=== PATIENT | male | born 1965 | race Caucasian/White ===

== ENCOUNTER 2020-11-22 19:43 | Emergency (ER) | payer SELFPAY ==
[2020-11-22] MEDS: predniSONE 20 MG TABLET 60 MG PO (19:55)
[2020-11-22 19:57] VITALS: BP 144/74; PULSE 78; RESP 24; TEMP 36.6; O2SAT 97; BMI 20.5
[2020-11-22 20:37] LABS: COVID19 -Nasal RAPID Negative (Negative)
--- NOTE | 2020-11-22 20:37 | PC.NURSE ---
Pt feeling better after MDI.
[2020-11-22 20:51] VITALS: PULSE 74; RESP 18; O2SAT 97
[2020-11-22] MEDS: ALBUTEROL/IPRATROPIUM 3 ML AMPUL INH (20:51)
--- NOTE | 2020-11-22 21:11 | RT ---
Pt's pre peak flow was 427, peak flow post tx was 393. Pt didn't give best effort for post peak flow and he did not want to attempt again. No respiratory distress noted.
--- NOTE | 2020-11-23 02:57 | ED_ITS ---
HPI - URI/Sore Throat General Chief Complaint: Upper Respiratory Symptoms Stated Complaint: Asthma Attack Time Seen by Provider: 11/22/20 19:52 Source: patient Mode of arrival: Ambulatory Limitations: no limitations History of Present Illness HPI Narrative: 55-year-old male nonsmoker with history of asthma presents with a chief complaint of wheezing and shortness of breath over the past few days. He states he has been without his medications for the past few weeks. He denies any chest pain. He has had no fever or chills. He denies nausea, vomiting or diarrhea. He becomes more short of breath with exertion and improves with rest. He denies any weight gain or swelling of his lower extremities. He denies long distance travel or history of blood clot. MD Complaint: other Onset (ago): hour(s) Duration: constant Severity: moderate Exacerbating factors: exertion Able to tolerate fluids by mouth: Yes Associated symptoms: denies other symptoms Treatments prior to arrival: none Related Data Previous Rx's Medication Instructions Recorded albuterol sulfate 2 puff INHALATION Q4H PRN #1 each 11/22/20 prednisone 20 mg PO DAILY #5 tab 11/22/20 Allergies Allergy/AdvReac Type Severity Reaction Status Date / Time No Known Drug Allergies Allergy Verified 11/22/20 20:02 Review of Systems Constitutional Constitutional: Denies chills, Denies fatigue, Denies fever(s), Denies frequent falls, Denies lethargy and Denies weakness Eyes Eyes: Denies change in vision, Denies eye discharge, Denies irritation and Denies loss of vision ENT Ears, Nose, Mouth, and Throat: Denies change in voice, Denies dizziness, Denies neck pain, Denies sore throat and Denies throat swelling Cardiovascular Cardiovascular: Denies chest pain, Denies irregular heart rhythm, Denies lightheadedness, Denies palpitations, Reports dyspnea, Denies dyspnea on exertion and Denies orthopnea Respiratory Respiratory: Denies cough, Reports dyspnea, Denies dyspnea on exertion and Reports wheezing Gastrointestinal Gastrointestinal: Denies abdominal pain, Denies change in bowel habits, Denies diarrhea, Denies nausea and Denies vomiting Musculoskeletal Musculoskeletal: Denies neck pain and Denies numbness Integumentary/Breasts Skin/Breast: Denies pruritus, Denies erythema, Denies rash and Denies wounds Neurologic Neurologic: Denies behavioral changes, Denies confusion, Denies dizziness, Denies frequent falls, Denies loss of vision, Denies numbness and Denies weakness Psychiatric Psychiatric: Denies anxiety, Denies behavioral changes, Denies confusion, Denies depression, Denies homicidal ideation and Denies suicidal ideation Endocrine Endocrine: Denies fatigue, Denies flushing and Denies palpitations Hematologic/Lymphatic Hematologic/Lymphatic: Denies easy bruising Allergic/Immunologic Allergic/Immunologic: Denies urticaria, Denies throat swelling and Reports wheezing Patient History Smoking Status: Never smoker alcohol intake frequency: 0-2 drinks per day Substance Use Type: does not use Exam Narrative Exam Narrative: GENERAL: [age] year old patient appears stated age. Well-developed patient, in mild distress. increased work of breathing HEAD: Atraumatic. Normocephalic. EYES: Pupils equal round and reactive. Extraocular motions intact. No scleral icterus. No injection or drainage. ENT: Nose without bleeding, purulent drainage. Throat without erythema, tonsillar hypertrophy or exudate. Airway patent. NECK: Trachea midline. Non tender CARDIOVASCULAR: Regular rate and rhythm without murmurs, gallops, or rubs. RESPIRATORY: decreased breath sounds throughout with wheezing in the apices and prolonged expiratory phase GASTROINTESTINAL: Abdomen soft, non-tender, nondistended. EXTREMITIES: No edema or joint tenderness. BACK: Nontender without deformity or crepitance. No flank tenderness. NEURO: AOx3. SKIN: No rash or erythema of visible areas Initial Vital Signs Initial Vital Signs: Vital Signs Temperature 97.8 F 11/22/20 19:57 Pulse Rate 78 11/22/20 19:57 Respiratory Rate 24 11/22/20 19:57 Blood Pressure 144/74 H 11/22/20 19:57 Pulse Oximetry 97 11/22/20 19:57 Course Course Course Narrative: patient demonstrates tremendous improvement after the above- stated therapies and is requesting discharge Orders Ordered: ED Orders 11/22/20 19:50 COVID19 -Nasal swab/Pre-Proc Stat 11/22/20 19:52 Measure peak expiratory flow POST TREATMENT Measure peak expiratory flow PRE TREATMENT RT Consult Eval and Treat STAT Discontinued Medications Albuterol/Ipratropium (Albuterol/Ipratropium 3 Ml Ampul) 3 ml INH NOW ONE Stop: 11/22/20 19:53 Last Admin: 06/18/21 20:51 Dose: 3 ml Documented by: SAURAV Prednisone (Prednisone 20 Mg Tablet) 60 mg PO NOW ONE Stop: 11/22/20 19:53 Last Admin: 11/22/20 19:55 Dose: 60 mg Documented by: PEYMAN Vital Signs Vital signs: Vital Signs - 8 hr 11/22/20 19:57 11/22/20 20:51 Temperature 97.8 F Pulse Rate 78 74 Respiratory Rate 24 18 Blood Pressure 144/74 H Pulse Oximetry 97 97 MDM - URI/Sore Throat Lab Data Labs: Lab Results 11/22/20 Range/Units 19:50 SARS-CoV-2 (PCR) Negative (Negative) Discharge Plan Departure Patient Disposition: Home Clinical Impression: Asthma exacerbation Qualifiers: Asthma severity: moderate Asthma persistence: unspecified Qualified Code(s): J45.901 - Unspecified asthma with (acute) exacerbation Instructions: Asthma -- Adult Activity Restrictions/Additional Instructions: *You have been diagnosed with [asthma exacerbation and no access to medications] *What to do: *Please continue to take your regular medications as directed. [ ] New medication prescriptions sent to your pharmacy: [ ] [ x] New medication written as a paper prescription [ ] No new medications given *Please follow up with your primary care provider in 2-3 days, call for an appointment. Let them know you were seen in the Emergency Department and that we ask that you be seen in follow up. We will electronically transmit a record of today's note if your PCP is in our system *If you do not have a primary care provider please contact the [facility] Resource line at [phone]. They will ask some questions about your medical history and help get you set up with a doctor in the community. *Return to Emergency Department if you should have any new, worsening or concerning symptoms, such as [fever greater than 101 F, shaking chills, worsening pain, persistent vomiting or other bothersome symptoms] Prescriptions: New prednisone 20 mg tablet 20 mg PO DAILY Qty: 5 RF: 0 albuterol sulfate 90 mcg/actuation aerosol powdr breath activated 2 puff INHALATION Q4H PRN (Reason: shortness of breath or wheezing) Qty: 1 RF: 0
== END 2020-11-22 21:23 | disposition home or self-care (01) ==
PROVIDERS: Emergency Provider Emergency Medicine
DX: J45.901 Unspecified asthma with (acute) exacerbation (principal); Z20.822 Contact with and (suspected) exposure to COVID-19
CPT/HCPCS: 87635; 94150; 94640; 99283; C9803

== ENCOUNTER 2021-10-06 22:44 | Emergency (ER) | payer OTHER, MEDICAID, SELFPAY ==
[2021-10-06 22:47] VITALS: BP 169/94; PULSE 77; RESP 20; TEMP 37.1; O2SAT 97
--- NOTE | 2021-10-06 23:12 | ED.RECABL ---
HPI - Recheck/Abnormal Lab/Rx General Chief Complaint: Recheck/Abnormal Lab/Rx Stated Complaint: [facility] Time Seen by Provider: 10/06/21 23:00 Source: patient and police Mode of arrival: Ambulatory History of Present Illness HPI narrative: 56-year-old male smoker with history of alcohol abuse denies other chronic medical problems presents with [place] please for medical clearance for incarceration. The patient admits to have consuming a large amount of alcohol tonight but denies any substances or drugs. He denies any injury or trauma nor any pain. He has no trouble breathing, nausea, vomiting or diarrhea. They had initially attempted to take him directly to shelter but because he was walking with an unsteady gait they requested he be medically cleared 1st. About 1-2 hours has passed in the interim and PD states that he has already clearly much better but still request clearance. They state the patient was unable to perform a Breathalyzer initially and the chair request a blood alcohol below 0.29 Related Data Previous Rx's Medication Instructions Recorded albuterol sulfate 90 mcg/actuation 2 puff INHALATION Q4H PRN #1 each 11/22/20 breath activated powder inhaler prednisone 20 mg tablet 20 mg PO DAILY #5 tab 11/22/20 Allergies Allergy/AdvReac Type Severity Reaction Status Date / Time No Known Drug Allergies Allergy Verified 11/22/20 20:02 Review of Systems Review of Systems Narrative: GENERAL: Denies chills, fatigue, malaise, fever, sweats. HEENT: Denies sinus pain, ear pain, sore throat, difficulty swallowing, dizziness. RESPIRATORY: Denies dyspnea, cough, wheezing, hemoptysis, sputum. CARDIOVASCULAR: Denies chest pain, palpitations, orthopnea, edema, GASTROINTESTINAL: Denies nausea, vomiting, abdominal pain, diarrhea, constipation, melena. : Denies dysuria, frequency, incontinence, hematuria, urinary retention. MUSCULOSKELETAL: denies weakness, joint pain, or bony pain SKIN: Denies rash, skin lesions, or other NEUROLOGIC: Denies weakness, headache, numbness, change in speech, confusion, seizures, incoordination. PSYCHIATRIC: No concerning psychosocial issues. 12 point review of systems is negative except for those stated above Patient History Social History Smoking Status: Never smoker Smoking Status: Never smoker alcohol intake frequency: 0-2 drinks per day Substance Use Type: does not use Exam Narrative Exam Narrative: GENERAL: [56] year old patient appears stated age. Well-developed patient, in no obvious distress. GCS 15, alert and oriented, some slurring of words but clear thought and able to walk with a steady gait HEAD: Atraumatic. Normocephalic. EYES: Pupils equal round and reactive. Extraocular motions intact. No scleral icterus. No injection or drainage. ENT: Nose without bleeding, purulent drainage. Throat without erythema, tonsillar hypertrophy or exudate. Airway patent. NECK: Trachea midline. Non tender CARDIOVASCULAR: Regular rate and rhythm without murmurs, gallops, or rubs. RESPIRATORY: Clear to auscultation. Breath sounds equal bilaterally. No wheezes, rales, or rhonchi. GASTROINTESTINAL: Abdomen soft, non-tender, nondistended. EXTREMITIES: No edema or joint tenderness. BACK: Nontender without deformity or crepitance. No flank tenderness. NEURO: AOx3. SKIN: No rash or erythema of visible areas Initial Vital Signs Initial Vital Signs: Vital Signs Temperature 98.7 F 10/06/21 22:47 Pulse Rate 77 10/06/21 22:47 Respiratory Rate 20 10/06/21 22:47 Blood Pressure 169/94 H 10/06/21 22:47 Pulse Oximetry 97 10/06/21 22:47 Course Course Course Narrative: Patient eventually agrees to perform Breathalyzer with [place] [employer] and resulting level is below threshold. Vital Signs Vital signs: Vital Signs - 8 hr 10/06/21 22:47 Temperature 98.7 F Pulse Rate 77 Respiratory Rate 20 Blood Pressure 169/94 H Pulse Oximetry 97 Discharge Plan Departure Patient Disposition: Home Clinical Impression: Medical clearance for incarceration, Alcohol intoxication Activity Restrictions/Additional Instructions: *You have been diagnosed with [alcohol intoxication and medical clearance for incarceration *What to do: *Please follow up with your primary care provider in 2-3 days, call for an appointment. Let them know you were seen in the Emergency Department and that we ask that you be seen in follow up. We will electronically transmit a record of today's note if your PCP is in our system *If you do not have a primary care provider please contact the [facility] Resource line at [phone]. They will ask some questions about your medical history and help get you set up with a doctor in the community. *Return to Emergency Department if you should have any new, worsening or concerning symptoms, such as [fever greater than 101 F, shaking chills, worsening pain, persistent vomiting or other bothersome symptoms] Prescriptions: No Action prednisone 20 mg tablet 20 mg PO DAILY Qty: 5 0RF Rx Instructions: administer with food or milk albuterol sulfate 90 mcg/actuation aerosol powdr breath activated 2 puff INHALATION Q4H PRN (Reason: shortness of breath or wheezing) Qty: 1 0RF Rx Instructions: administer with spacer
== END 2021-10-06 23:21 | disposition home or self-care (01) ==
PROVIDERS: Emergency Provider Emergency Medicine
DX: F10.129 Alcohol abuse with intoxication, unspecified (principal)
CPT/HCPCS: 99281

== ENCOUNTER 2021-11-07 11:51 | Emergency (ER) | payer OTHER, MEDICAID, SELFPAY ==
[2021-11-07 11:58] VITALS: BP 154/99; PULSE 97; RESP 26; TEMP 36.4; O2SAT 99; BMI 20.5
--- NOTE | 2021-11-07 14:08 | ED.GENADULT ---
HPI - General Adult General Chief complaint: Toxicology Problem Stated complaint: sweating; Meth (came with copier technician) Time Seen by Provider: 11/07/21 13:53 Source: patient and police Mode of arrival: other (Police) History of Present Illness HPI narrative: 56-year-old male who is brought in by police to (not under arrest) after he was found running around the local area. Was also running down the middle of the street. Patient admitted to drinking alcohol this morning also admitted to smoking meth this morning. He states that he has been drinking alcohol for quite some time but just recently started smoking meth. He did take multiple hits of meth today. He was given to him by family members. He states that he was high at the time. He somewhat remembers the events of this morning but does not know why he was running around. He does remember being paranoid that the police were after him. Denies SI/HI. By the time I evaluated the patient he was still feeling very anxious but states that he was no longer drunk and no longer high. He states that he would like rehab. Refusing to have any blood drawn or to give a urine sample as he states that he is afraid that the police will come back and arrest him. Related Data Previous Rx's Medication Instructions Recorded albuterol sulfate 90 mcg/actuation 2 puff INHALATION Q4H PRN #1 each 11/22/20 breath activated powder inhaler prednisone 20 mg tablet 20 mg PO DAILY #5 tab 11/22/20 Allergies Allergy/AdvReac Type Severity Reaction Status Date / Time No Known Drug Allergies Allergy Verified 11/22/20 20:02 Review of Systems Cardiovascular Comments: No chest pain Respiratory Comments: No shortness of breath Gastrointestinal Comments: No abdominal pain Psychiatric Psychiatric: Reports system reviewed and no additional complaints, except as documented Patient History Medical History Alcohol abuse Methamphetamine abuse Social History Smoking Status: Never smoker Smoking Status: Never smoker alcohol intake frequency: 0-2 drinks per day Substance Use Type: methamphetamine Exam Initial Vital Signs Initial Vital Signs: Vital Signs Temperature 97.6 F 11/07/21 11:58 Pulse Rate 97 H 11/07/21 11:58 Respiratory Rate 26 H 11/07/21 11:58 Blood Pressure 154/99 H 11/07/21 11:58 Pulse Oximetry 99 11/07/21 11:58 HENMT Head: normal to inspection and normocephalic Resp Effort & Inspection: normal respiratory effort and tachypneic Cardio Rate: regular rate GI Inspection: normal to inspection Skin General: no rashes or lesions noted Neuro General: patient alert, patient awake and moves all extremities Cognition: normal cognition Speech: speech normal Extrem General: normal to inspection Psych Other: Cooperative, alert oriented, somewhat paranoid and fidgety and a little agitated. Course Orders Ordered: ED Orders 11/07/21 12:05 Consult to [facility] [place] Visual Merchandising Manager Stat 11/07/21 14:19 Urine Drug Screen, Rapid Stat Vital Signs Vital signs: Vital Signs - 8 hr 11/07/21 11:58 Temperature 97.6 F Pulse Rate 97 H Respiratory Rate 26 H Blood Pressure 154/99 H Pulse Oximetry 99 Medical Decision Making MDM Narrative Medical decision making narrative: Patient is clinically sober. Is alert oriented x3. Has a GCS of 15. Is not suicidal. Not homicidal. Does have insight as to why he is here. He stated that he was running down the middle of the road. He admits that this was not the correct thing to do. He does admit that is because he was smoking meth. He has never had this type of issue before with meth. Patient does not want to provide any blood nor urine sample. He is convinced that police will use this information to arrest him. He was reassured by nursing staff and social Work and myself that this was not the case. He was informed that this was a safe place and that we could help him. He would like to pursue inpatient detox however I informed him that without having blood or urine we would not be able to do this. Patient was seen by social work. He would like to be discharged. Patient is ambulatory. Will discharge home. Discharge Plan Departure Patient Disposition: Home Clinical Impression: Methamphetamine abuse Instructions: Substance Use Disorder Activity Restrictions/Additional Instructions: You are being discharged home. No driving for the next 24 hours or in the future if you drink alcohol or use methamphetamine. I do recommend that you consider decreasing the your intake of both these substances. Return to the emergency department for any new or worsening symptoms. Prescriptions: No Action prednisone 20 mg tablet 20 mg PO DAILY Qty: 5 0RF Rx Instructions: administer with food or milk albuterol sulfate 90 mcg/actuation aerosol powdr breath activated 2 puff INHALATION Q4H PRN (Reason: shortness of breath or wheezing) Qty: 1 0RF Rx Instructions: administer with spacer Stand Alone Forms: Naloxone Standing Order [id number]
--- NOTE | 2021-11-07 14:10 | PC.NURSE ---
pt reports that he will possibly try to get a urine sample. I gave him water. States he refuses to get blood drawn. states he is worried he is going to be arrested from walking in and out of traffic. [employer] bought patient in. I explained to pt the meth that he used will make him do all the things he was doing. pt stated, i must have got a bad batch. I need to talk to the facility . I explained to patient that we need blood and urine in order to help find placement. pt kept saying the he was going to go to intermediate for walking in traffic. clinical social work therapist aware and will see patient.
--- NOTE | 2021-11-07 14:55 | PC.NURSE ---
pt questioning discharge instructions and refusing to leave until checked out by the Doctor. pt Unsatisfied with this RNs explanation of discharge paperwork and will wait for the MD.
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
== END 2021-11-07 15:06 | disposition home or self-care (01) ==
PROVIDERS: Emergency Provider Emergency Medicine
DX: F15.10 Other stimulant abuse, uncomplicated (principal)
CPT/HCPCS: 99281; 99282

== ENCOUNTER 2021-12-25 02:17 | Emergency (ER) | payer OTHER, MEDICAID, SELFPAY ==
--- NOTE | 2021-12-25 02:37 | ED_ITS ---
HPI - Dental/Oral General Chief complaint: Dental/Oral Stated complaint: mouth/tooth pain x7 days Time Seen by Provider: 12/25/21 02:37 History of Present Illness HPI Narrative: 56-year-old male nonsmoker uses alcohol daily and has a remote history of methamphetamine use. Presents today with a chief complaint of about 7 days of severe left-sided dental pain both of the upper and lower molars. He states he is had prior dental work here and thinks the fillings may have come out. He denies any facial swelling, fever or chills. He denies any difficulty swallowing. He is taken Tylenol and Motrin with little relief. He is otherwise well and free of complaint Related Data Previous Rx's Medication Instructions Recorded albuterol sulfate 90 mcg/actuation 2 puff inhalation Q4H PRN 11/22/20 breath activated powder inhaler shortness of breath or wheezing #1 ea prednisone 20 mg tablet 20 mg PO DAILY #5 tabs 11/22/20 amoxicillin 875 mg-potassium 1 tab PO Q12H #20 tabs 12/25/21 clavulanate 125 mg tablet ketorolac 10 mg tablet 10 mg PO Q6H PRN pain #14 tabs 12/25/21 Allergies Allergy/AdvReac Type Severity Reaction Status Date / Time No Known Drug Allergies Allergy Verified 11/22/20 20:02 Review of Systems Review of Systems Narrative: GENERAL: See HPI HEENT: See HPI RESPIRATORY: Denies dyspnea, cough, wheezing, hemoptysis, sputum. CARDIOVASCULAR: Denies chest pain, palpitations, orthopnea, edema, GASTROINTESTINAL: Denies nausea, vomiting, abdominal pain, diarrhea, constipation, melena. : Denies dysuria, frequency, incontinence, hematuria, urinary retention. MUSCULOSKELETAL: denies weakness, joint pain, or bony pain SKIN: Denies rash, skin lesions, or other NEUROLOGIC: Denies weakness, headache, numbness, change in speech, confusion, seizures, incoordination. PSYCHIATRIC: No concerning psychosocial issues. 12 point review of systems is negative except for those stated above Patient History Medical History Alcohol abuse Methamphetamine abuse Social History Smoking Status: Never smoker Smoking Status: Never smoker alcohol intake frequency: 0-2 drinks per day Substance Use Type: methamphetamine Exam Narrative Exam Narrative: GENERAL: [56] year old patient appears stated age. Well-developed patient, in moderate distress, rubbing the left side of his face, obviously uncomfortable HEAD: Atraumatic. Normocephalic. EYES: Pupils equal round and reactive. Extraocular motions intact. No scleral icterus. No injection or drainage. ENT: No facial swelling, induration or erythema, widespread poor dentition, left upper and lower molars with what appears to be feelings that have fallen out. No obvious intraoral swelling or fluctuance Nose without bleeding, purulent drainage. Throat without erythema, tonsillar hypertrophy or exudate. Airway patent. NECK: Trachea midline. Non tender CARDIOVASCULAR: Regular rate and rhythm without murmurs, gallops, or rubs. RESPIRATORY: Clear to auscultation. Breath sounds equal bilaterally. No wheezes, rales, or rhonchi. GASTROINTESTINAL: Abdomen soft, non-tender, nondistended. EXTREMITIES: No edema or joint tenderness. BACK: Nontender without deformity or crepitance. No flank tenderness. NEURO: AOx3. SKIN: No rash or erythema of visible areas Procedures Nerve Block Nerve Block 1: Time out performed: Yes Local Anesthetic: bupivacaine 0.25% Amount of anesthesia used (mL): 6 Side: left Intraoral Nerve Block: superior alveolar and inferior alveolar Procedure Successful: No Patient Tolerated Procedure: Well Complications: none Course Orders Ordered: Discontinued Medications Hydrocodone Bitart/Acetaminophen (Hydrocodone/Acet 5/325 Prepack) 1 bottle MISC SEEINSTR ONE Stop: 12/25/21 03:29 Amoxicillin/Clavulanate Potassium (Amoxicillin/Clav 875/125 Mg) 1 tab PO NOW ONE Stop: 12/25/21 02:46 Last Admin: 12/25/21 02:51 Dose: 1 tab Documented By: MARSHALL Bupivacaine HCl (Bupivacaine 0.5% (Pf) Vial) 5 ml SUBCUT NOW ONE Stop: 12/25/21 02:46 Last Admin: 12/25/21 02:55 Dose: 5 ml Documented By: MARSHALL Discharge Plan Departure Patient Disposition: Home Clinical Impression: Pain due to dental caries, Abscess, dental Instructions: DI for Dental Pain Activity Restrictions/Additional Instructions: *You have been diagnosed with [dental pain with possible early abscess] *What to do: *Please continue to take your regular medications as directed. [ x] New medication prescriptions sent to your pharmacy: [ Sean] [ ] New medication written as a paper prescription [ ] No new medications given *Please follow up with your primary care provider in 2-3 days, call for an appointment. Let them know you were seen in the Emergency Department and that we ask that you be seen in follow up. We will electronically transmit a record of today's note if your PCP is in our system *If you do not have a primary care provider please contact the [facility] Resource line at [phone]. They will ask some questions about your medical history and help get you set up with a doctor in the community. *Return to Emergency Department if you should have any new, worsening or concerning symptoms, such as [fever greater than 101 F, shaking chills, worsening pain, persistent vomiting or other bothersome symptoms] Prescriptions: New ketorolac 10 mg tablet 10 mg PO Q6H PRN (Reason: pain) Qty: 14 0RF amoxicillin-pot clavulanate 875-125 mg tablet 1 tab PO Q12H Qty: 20 0RF No Action prednisone 20 mg tablet 20 mg PO DAILY Qty: 5 0RF Rx Instructions: administer with food or milk albuterol sulfate 90 mcg/actuation aerosol powdr breath activated 2 puff INHALATION Q4H PRN (Reason: shortness of breath or wheezing) Qty: 1 0RF Rx Instructions: administer with spacer
[2021-12-25 02:44] VITALS: BMI 21.2
[2021-12-25] MEDS: AMOXICILLIN/CLAV 875/125 MG 1 TAB PO (02:51)
[2021-12-25] MEDS: BUPIVACAINE 0.5% (PF) VIAL 5 ML SUBCUT (02:55)
[2021-12-25] MEDS: HYDROCODONE/ACET 5/325 PREPACK 1 BOTTLE MISC (03:46)
[2021-12-25 03:52] VITALS: BP 168/56; PULSE 70; RESP 18; TEMP 37.6; O2SAT 99
== END 2021-12-25 03:50 | disposition home or self-care (01) ==
PROVIDERS: Emergency Provider Emergency Medicine
DX: K04.7 Periapical abscess without sinus (principal); K02.9 Dental caries, unspecified
CPT/HCPCS: 64450; 99283

== ENCOUNTER 2022-01-20 23:01 | Emergency (ER) | payer OTHER, MEDICAID, SELFPAY ==
[2022-01-20 23:04] VITALS: BP 135/91; PULSE 66; RESP 19; TEMP 36.4; O2SAT 100; BMI 20.5
== END 2022-01-21 00:24 | disposition left against medical advice (07) ==
PROVIDERS: Emergency Provider Emergency Medicine
CPT/HCPCS: 99281

== ENCOUNTER 2022-03-14 18:37 | Emergency (ER) | payer OTHER, MEDICAID, SELFPAY ==
--- NOTE | 2022-03-14 19:19 | PC.NURSE ---
registration reports pt will be back. I called patient twice. no answer.
[2022-03-14 20:13] VITALS: BP 133/77; PULSE 67; RESP 18; TEMP 36.6; O2SAT 99; BMI 19.9
--- NOTE | 2022-03-14 20:16 | DI.RAD.S_ITS ---
PROCEDURE: XR ANKLE RT MIN 3V INDICATIONS: ankle injury TECHNIQUE: 3 views of the ankle were acquired. COMPARISON: None. FINDINGS: Bones: No fractures or dislocations. Ankle mortise is normally aligned. No suspicious bony lesions. Soft tissues: No tibiotalar joint effusion. Achilles tendon appears normal. IMPRESSION: No trauma or malalignment found. Dictated by: Lenard Gonzalez M.D. on 03/14/2022 at 20:57 Approved by: Lenard Gonzalez M.D. on 03/14/2022 at 20:58
[2022-03-14] MEDS: IBUPROFEN 400 MG TABLET 800 MG PO (20:38)
[2022-03-14] MEDS: ACETAMINOPHEN 325 MG TABLET 975 MG PO (20:38)
--- NOTE | 2022-03-14 22:43 | PC.NURSE ---
After multiple attempts to find pt, pt not in lobby.
== END 2022-03-14 22:48 | disposition left against medical advice (07) ==
PROVIDERS: Emergency Provider Emergency Medicine
DX: S99.911A Unspecified injury of right ankle, initial encounter (principal); W01.0XXA Fall on same level from slipping, tripping and stumbling without subsequent striking against object, initial encounter
CPT/HCPCS: 73610; 99283

== ENCOUNTER 2024-07-24 17:11 | Emergency (ER) | payer OTHER, SELFPAY ==
[2024-07-24 17:16] VITALS: BP 139/94; PULSE 89; RESP 16; TEMP 36.4; O2SAT 98; BMI 20.5
--- NOTE | 2024-07-24 18:15 | ED_ITS ---
<Statement entered by Baljit Holguin DO - 07/27/24 06:52> Dr. Holguin: I was immediately available in the department for consultation. I did not actually see the patient. HPI - Skin/Abscess/Foreign Bdy General Chief complaint: Skin/Abscess/Foreign Body Stated complaint: Itchy Rash on Legs Time Seen by Provider: 07/24/24 17:54 History of Present Illness HPI narrative: 59-year-old male with past medical history methamphetamine use, alcohol use presents to the ED with 3 months of worsening rash on his bilateral lower extremities. Patient states that the rash started 3 months ago on his right foot, has progressed up until the groin. Patient's left leg is similarly affected. Patient states that the rash is itchy, dry, painful. No mucosal involvement. Related Data Previous Rx's Medication Instructions Recorded albuterol sulfate 90 mcg/actuation 2 puff inhalation Q4H PRN 11/22/20 breath activated powder inhaler shortness of breath or wheezing #1 ea prednisone 20 mg tablet 20 mg PO DAILY #5 tabs 11/22/20 amoxicillin 875 mg-potassium 1 tab PO Q12H #20 tabs 12/25/21 clavulanate 125 mg tablet ketorolac 10 mg tablet 10 mg PO Q6H PRN pain #14 tabs 12/25/21 cephalexin 500 mg capsule 500 mg PO QID 7 days #28 caps 07/24/24 sulfamethoxazole 800 1 tab PO Q12H 7 days #14 tabs 07/24/24 mg-trimethoprim 160 mg tablet (Bactrim DS) Allergies Allergy/AdvReac Type Severity Reaction Status Date / Time No Known Drug Allergies Allergy Verified 03/14/22 20:16 Review of Systems Constitutional Constitutional: Denies chills, Denies fatigue, Denies fever(s), Denies frequent falls, Denies lethargy and Denies weakness Eyes Eyes: Denies change in vision, Denies eye discharge, Denies irritation and Denies loss of vision ENT Ears, Nose, Mouth, and Throat: Denies change in voice, Denies dizziness, Denies neck pain, Denies sore throat and Denies throat swelling Cardiovascular Cardiovascular: Denies chest pain, Denies irregular heart rhythm, Denies lightheadedness, Denies palpitations, Denies dyspnea, Denies dyspnea on exertion and Denies orthopnea Respiratory Respiratory: Denies cough, Denies dyspnea, Denies dyspnea on exertion and Denies wheezing Gastrointestinal Gastrointestinal: Denies abdominal pain, Denies change in bowel habits, Denies diarrhea, Denies nausea and Denies vomiting Musculoskeletal Musculoskeletal: Denies neck pain and Denies numbness Integumentary/Breasts Skin/Breast: Denies pruritus, Denies erythema, Reports rash and Denies wounds Neurologic Neurologic: Denies behavioral changes, Denies confusion, Denies dizziness, Denies frequent falls, Denies loss of vision, Denies numbness and Denies weakness Psychiatric Psychiatric: Denies anxiety, Denies behavioral changes, Denies confusion, Denies depression, Denies homicidal ideation and Denies suicidal ideation Endocrine Endocrine: Denies fatigue, Denies flushing and Denies palpitations Hematologic/Lymphatic Hematologic/Lymphatic: Denies easy bruising Allergic/Immunologic Allergic/Immunologic: Denies urticaria, Denies throat swelling and Denies wheezing Patient History Medical History Methamphetamine abuse Alcohol abuse Social History Smoking Status: Never smoker Smoking Status: Never smoker alcohol intake frequency: 0-2 drinks per day Exam Narrative Exam Narrative: Const General:?cooperative, healthy appearing and comfortable [facility] Head:?normal to inspection Ears:?hearing grossly normal bilaterally Nose:?external nose normal Face and sinus:?normal facial exam and sinuses nontender Mouth:?oral mucosae normal Throat:?posterior oropharynx normal Eyes General:?appearance normal, both eyes and all related structures Neck Neck:?normal visual inspection and no lymphadenopathy noted Resp Effort & Inspection:?normal respiratory effort Auscultation:?clear to auscultation bilaterally Cardio Rate:?regular rate Rhythm:?regular rhythm Integumentary There is a erythematous, dry rash with multiple scabs on bilateral lower extremities. No purulence. Neuro General:?patient alert, patient awake and patient oriented x3 Initial Vital Signs Initial Vital Signs: Vital Signs Temperature 97.6 F 07/24/24 17:16 Pulse Rate 89 07/24/24 17:16 Respiratory Rate 16 07/24/24 17:16 Blood Pressure 139/94 H 07/24/24 17:16 Pulse Oximetry 98 07/24/24 17:16 Oxygen Delivery Method Room Air 07/24/24 17:16 Course Vital Signs Vital signs: Vital Signs - 8 hr 07/24/24 17:16 Temperature 97.6 F Pulse Rate 89 Respiratory Rate 16 Blood Pressure 139/94 H Pulse Oximetry 98 Oxygen Delivery Method Room Air MDM - Skin/Abscess/Foreign Bdy MDM Narrative Medical decision making narrative: 59-year-old male with past medical history methamphetamine use, alcohol use presents to the ED with 3 months of worsening rash on his bilateral lower extremities. Will treat for cellulitis. Prescribed cephalexin, Bactrim to ensure MRSA and strep coverage. Recommend follow-up with PCP. ED return precautions discussed with patient. Patient verbalized understanding. Medical records reviewed: Yes Discharge Plan Departure Patient Disposition: Home Clinical Impression: Cellulitis Qualifiers: Site of cellulitis: extremity Site of cellulitis of extremity: lower extremity Laterality: unspecified laterality Qualified Code(s): L03.119 - Cellulitis of unspecified part of limb Instructions: DI for Cellulitis -- Adult Activity Restrictions/Additional Instructions: You were evaluated in the emergency department for a rash on your legs. You are being prescribed antibiotics for it. Please take them as prescribed. Please follow-up with your PCP as soon as possible. Return to the ED if you have worsening symptoms. Prescriptions: New sulfamethoxazole-trimethoprim [Bactrim DS] 800-160 mg tablet 1 tab PO Q12H 7 Days Qty: 14 0RF cephalexin 500 mg capsule 500 mg PO QID 7 Days Qty: 28 0RF No Action prednisone 20 mg tablet 20 mg PO DAILY Qty: 5 0RF Rx Instructions: administer with food or milk albuterol sulfate 90 mcg/actuation aerosol powdr breath activated 2 puff INHALATION Q4H PRN (Reason: shortness of breath or wheezing) Qty: 1 0RF Rx Instructions: administer with spacer ketorolac 10 mg tablet 10 mg PO Q6H PRN (Reason: pain) Qty: 14 0RF amoxicillin-pot clavulanate 875-125 mg tablet 1 tab PO Q12H Qty: 20 0RF Stand Alone Forms: Patient Portal/API/Survey
--- NOTE | 2024-07-24 18:19 | PC.NURSE ---
Patient presents with bilateral lower extremity redness/swelling and itching/pain. He is unhoused at this time. His skin is raw and chapped, he reports trying to use OTC ointments, but has had no relief.
== END 2024-07-24 18:34 | disposition home or self-care (01) ==
PROVIDERS: Emergency Provider Student in an Organized Health Care Education/Training Program
DX: L03.116 Cellulitis of left lower limb (principal); L03.115 Cellulitis of right lower limb
CPT/HCPCS: 99281

== ENCOUNTER 2025-01-07 07:36 | Emergency (ER) | payer OTHER, SELFPAY ==
[2025-01-07] VITALS (13 sets, daily range): BP systolic 134–172; BP diastolic 82–97; PULSE 61–98; RESP 14–29; TEMP 36.7; O2SAT 97–100
[2025-01-07] MEDS: ALBUTEROL/IPRATROPIUM 3 ML AMPUL INH (08:05)
[2025-01-07] MEDS: ALBUTEROL 2.5 MG/3 ML NEB (ADULT) INH (08:31)
--- NOTE | 2025-01-07 08:41 | ED.ASTHMA ---
HPI - Asthma General Chief Complaint: Asthma Stated Complaint: SOB Time Seen by Provider: 01/07/25 08:03 History of Present Illness HPI Narrative: 59-year-old male nonsmoker with known asthma history presents with more shortness of breath and a potential asthma exacerbation. Patient has run out of his inhalers. Patient denies any chest pain abdominal pain or any other symptoms. Related Data Previous Rx's ?Medication ?Instructions ?Recorded albuterol sulfate 90 mcg/actuation 2 puff inhalation Q4H PRN 11/22/20 breath activated powder inhaler shortness of breath or wheezing #1 ea prednisone 20 mg tablet 20 mg PO DAILY #5 tabs 11/22/20 amoxicillin 875 mg-potassium 1 tab PO Q12H #20 tabs 12/25/21 clavulanate 125 mg tablet ketorolac 10 mg tablet 10 mg PO Q6H PRN pain #14 tabs 12/25/21 albuterol sulfate 90 mcg/actuation 2 puff inhalation Q6H PRN 01/07/25 aerosol inhaler shortness of breath or wheezing #8.5 grams fluticasone propionate 110 2 puff inhalation BID #12 grams 01/07/25 mcg/actuation HFA aerosol inhaler prednisone 50 mg tablet 50 mg PO DAILY #5 tabs 01/07/25 triamcinolone acetonide 0.1 % 1 applic topical BID 14 days #80 01/07/25 topical cream grams Allergies Allergy/AdvReac Type Severity Reaction Status Date / Time No Known Drug Allergies Allergy Verified 01/07/25 07:38 Review of Systems Review of Systems ROS Unobtainable: All systems reviewed & are unremarkable except as noted in HPI and below Patient History Medical History Methamphetamine abuse Alcohol abuse alcohol intake frequency: 0-2 drinks per day Exam Narrative Exam Narrative: General: Patient appears to be in no acute distress, acting appropriately Head: normocephalic, atraumatic, HEENT: Pupils equal round reactive, eyes tracking well, neck supple, no JVD Heart: regular rate and rhythm, no murmurs, rubs, or gallops heard Lungs: decreased breath sounds, wheezing Abdomen: soft , nontender, nondistended, positive bowel sounds Neurological: no focal neurological signs, moving all extremities well, alert and oriented x3, Psych: good judgment ,good insight, mood is normal. Initial Vital Signs Initial Vital Signs: Vital Signs Pulse Rate 98 H 01/07/25 07:38 Respiratory Rate 24 01/07/25 07:38 Pulse Oximetry 98 01/07/25 07:38 Oxygen Delivery Method Room Air 01/07/25 07:38 Course Course Course Narrative: 59-year-old male who is obviously having exacerbation. Patient will be given a DuoNeb treatment with albuterol treatments as needed. Respiratory therapist is assisting. Dexamethasone 10 mg IV will be given as well. Orders Ordered: Albuterol (Albuterol 2.5 Mg/3 Ml Neb (Adult)) 2.5 mg INH [id number] PRN PRN Reason: Shortness Of Breath Last Admin: 01/07/25 08:31 Dose: 2.5 mg Documented By: DejaK Discontinued Medications Albuterol/Ipratropium (Albuterol/Ipratropium 3 Ml Ampul) 3 ml INH NOW ONE Stop: 01/07/25 07:51 Last Admin: 01/07/25 08:05 Dose: 3 ml Documented By: [email or web address] Dexamethasone (Dexamethasone 10 Mg/Ml Vial) 10 mg IV NOW ONE Stop: 01/07/25 08:22 Last Admin: 01/07/25 08:46 Dose: 10 mg Reevaluation(s) Reevaluation #1: Upon re-evaluation, the patient is breathing much better after a DuoNeb treatment and the dexamethasone. Vital Signs Vital signs: Vital Signs - 8 hr 01/07/25 07:38 01/07/25 07:46 01/07/25 08:00 Temperature Pulse Rate 98 H 68 68 Respiratory Rate 24 20 Blood Pressure Pulse Oximetry 98 97 100 Oxygen Delivery Method Room Air Fraction of Inspired Oxygen 01/07/25 08:00 01/07/25 08:15 01/07/25 08:15 Temperature Pulse Rate 62 Respiratory Rate 19 Blood Pressure 156/92 H 147/89 H Pulse Oximetry 99 Oxygen Delivery Method Fraction of Inspired Oxygen 01/07/25 08:30 01/07/25 08:30 01/07/25 08:32 Temperature 98.0 F Pulse Rate 63 75 Respiratory Rate 27 H 18 Blood Pressure 137/82 Pulse Oximetry 98 100 Oxygen Delivery Method Room Air Room Air Fraction of Inspired Oxygen 21 01/07/25 08:45 01/07/25 08:45 01/07/25 09:00 Temperature Pulse Rate 62 Respiratory Rate 29 H Blood Pressure 150/91 H 147/89 H Pulse Oximetry 98 Oxygen Delivery Method Room Air Fraction of Inspired Oxygen 01/07/25 09:00 01/07/25 09:15 01/07/25 09:15 Temperature Pulse Rate 61 69 Respiratory Rate 19 21 Blood Pressure 172/97 H Pulse Oximetry 99 99 Oxygen Delivery Method Fraction of Inspired Oxygen 01/07/25 09:30 01/07/25 09:30 01/07/25 09:45 Temperature Pulse Rate 79 63 Respiratory Rate 24 15 Blood Pressure 157/93 H Pulse Oximetry 99 98 Oxygen Delivery Method Fraction of Inspired Oxygen 01/07/25 09:45 Temperature Pulse Rate Respiratory Rate Blood Pressure 146/82 H Pulse Oximetry Oxygen Delivery Method Fraction of Inspired Oxygen MDM - Asthma Differential Diagnosis Differential diagnosis: Likely Acute exacerbation, Status asthmaticus, Pneumonia and COPD exacerbation MDM Narrative Medical decision making narrative: Patient having an obvious asthma exacerbation that is better after a DuoNeb treatment and dexamethasone. Patient will be discharged with more prednisone and Flovent to be used twice a day for maintenance along with an albuterol inhaler to be used as needed. Patient also given some triamcinolone cream for his eczema. Follow up with PCP. Follow up here in ER for worsening shortness of breath. Discharge Plan Departure Patient Disposition: Home Clinical Impression: Asthma with acute exacerbation Qualifiers: Asthma severity: moderate Asthma persistence: unspecified Qualified Code(s): J45.901 - Unspecified asthma with (acute) exacerbation Eczema Qualifiers: Eczema type: flexural Qualified Code(s): L20.82 - Flexural eczema Instructions: DI for Asthma -- Adult, DI for Atopic Dermatitis-Adult Activity Restrictions/Additional Instructions: Use the fluticasone inhaler twice a day 2 puffs no matter how you are feeling. The other albuterol inhaler use as needed. Use the triamcinolone cream twice a day as needed for the rash areas. Follow up of ever having any more shortness of breath. Prescriptions: New albuterol sulfate 90 mcg/actuation HFA aerosol inhaler 2 puff inhalation Q6H PRN (Reason: shortness of breath or wheezing) Qty: 8.5 1RF fluticasone propionate 110 mcg/actuation HFA aerosol inhaler 2 puff inhalation BID Qty: 12 0RF prednisone 50 mg tablet 50 mg PO DAILY Qty: 5 0RF triamcinolone acetonide 0.1 % cream 1 applic topical BID 14 Days Qty: 80 0RF No Action prednisone 20 mg tablet 20 mg PO DAILY Qty: 5 0RF Rx Instructions: administer with food or milk albuterol sulfate 90 mcg/actuation aerosol powdr breath activated 2 puff INHALATION Q4H PRN (Reason: shortness of breath or wheezing) Qty: 1 0RF Rx Instructions: administer with spacer ketorolac 10 mg tablet 10 mg PO Q6H PRN (Reason: pain) Qty: 14 0RF amoxicillin-pot clavulanate 875-125 mg tablet 1 tab PO Q12H Qty: 20 0RF Stand Alone Forms: Patient Portal/API
[2025-01-07] MEDS: DEXAMETHASONE 10 MG/ML VIAL IV (08:46)
--- NOTE | 2025-01-07 08:50 | PC.NURSE ---
patient states he hasn't had money for his inhalers but did recently get [employer] ins.
== END 2025-01-07 10:23 | disposition home or self-care (01) ==
PROVIDERS: Emergency Provider Family Medicine
DX: J45.901 Unspecified asthma with (acute) exacerbation (principal); L20.82 Flexural eczema
CPT/HCPCS: 94640; 96374; 99284; J1100; J7613

== ENCOUNTER 2025-01-16 15:15 | Emergency (ER) | payer OTHER, SELFPAY ==
[2025-01-16 15:32] VITALS: BP 128/77; PULSE 86; RESP 18; TEMP 36.8; O2SAT 96; BMI 20.5
[2025-01-16 16:30] VITALS: BP 120/68; PULSE 76; RESP 18; TEMP 36.6; O2SAT 99
--- NOTE | 2025-01-16 18:14 | ED_ITS ---
<Statement entered by Sahil Camilo, DO - 01/16/25 18:20> Co-sign statement: I was available for consultation during this patient's emergency department visit. This chart is being signed by myself for administrative purposes only. I do not have direct contact with this patient during this visit. They were seen independently by the APC. HPI - Skin/Abscess/Foreign Bdy General Chief complaint: Skin/Abscess/Foreign Body Stated complaint: rash on hands Time Seen by Provider: 01/16/25 15:35 Source: patient Mode of arrival: Ambulatory Limitations: no limitations History of Present Illness HPI narrative: 59-year-old male with past medical history asthma presents to the ED with rashes on bilateral lower and upper extremities. Patient was treated in the ED 2 weeks ago with the same rash, prescribed steroid ointment, which improved the rash, per patient. Patient however has run out of the medication and is requesting a refill. No mucosal involvement. No fever, chills. Related Data Previous Rx's ?Medication ?Instructions ?Recorded albuterol sulfate 90 mcg/actuation 2 puff inhalation Q 4H PRN 11/22/20 breath activated powder inhaler shortness of breath or wheezing #1 ea prednisone 20 mg tablet 20 mg PO DAILY #5 tabs 11/22 amoxicillin 875 mg-potassium 1 tab PO Q12H #20 tabs clavulanate 125 mg tablet ketorolac 10 mg tablet 10 mg PO Q6H PRN pain #14 ta bs 12/25/21 albuterol sulfate 90 mcg/actuation 2 puff inhalation Q 6H PRN 01/07/25 aerosol inhaler shortness of breath or wheez ing #8.5 grams fluticasone propionate 110 2 puff inhalation BID #12 g cristobal 01/07/25 mcg/actuation HFA aerosol inhaler prednisone 50 mg tablet 50 mg PO DAILY #5 tabs 01/07 triamcinolone acetonide 0.1 % 1 applic topical BID 14 days #80 01/07/25 topical cream grams triamcinolone acetonide 0.05 % 1 applic topical BID 2 weeks #430 01/16/25 topical ointment grams Allergies Allergy/AdvReac Type Severity Reaction Status Date / Time No Known Drug Allergies Allergy Verified 01/07/25 07:38 Review of Systems Constitutional Constitutional: Denies chills, Denies fatigue, Denies fever(s), Denies frequent falls, Denies lethargy and Denies weakness Eyes Eyes: Denies change in vision, Denies eye discharge, Denies irritation and Denies loss of vision ENT Ears, Nose, Mouth, and Throat: Denies change in voice, Denies dizziness, Denies neck pain, Denies sore throat and Denies throat swelling Cardiovascular Cardiovascular: Denies chest pain, Denies irregular heart rhythm, Denies lightheadedness, Denies palpitations, Denies dyspnea, Denies dyspnea on exertion and Denies orthopnea Respiratory Respiratory: Denies cough, Denies dyspnea, Denies dyspnea on exertion and Denies wheezing Gastrointestinal Gastrointestinal: Denies abdominal pain, Denies change in bowel habits, Denies diarrhea, Denies nausea and Denies vomiting Musculoskeletal Musculoskeletal: Denies neck pain and Denies numbness Integumentary/Breasts Skin/Breast: Denies pruritus, Denies erythema, Reports rash and Denies wounds Neurologic Neurologic: Denies behavioral changes, Denies confusion, Denies dizziness, Denies frequent falls, Denies loss of vision, Denies numbness and Denies weakness Psychiatric Psychiatric: Denies anxiety, Denies behavioral changes, Denies confusion, Denies depression, Denies homicidal ideation and Denies suicidal ideation Endocrine Endocrine: Denies fatigue, Denies flushing and Denies palpitations Hematologic/Lymphatic Hematologic/Lymphatic: Denies easy bruising Allergic/Immunologic Allergic/Immunologic: Denies urticaria, Denies throat swelling and Denies wheezing Patient History Medical History Methamphetamine abuse Alcohol abuse alcohol intake frequency: 0-2 drinks per day Exam Narrative Exam Narrative: Const General:?cooperative, healthy appearing and comfortable [facility] Head:?normal to inspection Ears:?hearing grossly normal bilaterally Nose:?external nose normal Face and sinus:?normal facial exam and sinuses nontender Mouth:?oral mucosae normal Throat:?posterior oropharynx normal Eyes General:?appearance normal, both eyes and all related structures Neck Neck:?normal visual inspection and no lymphadenopathy noted Resp Effort & Inspection:?normal respiratory effort Auscultation:?clear to auscultation bilaterally Cardio Rate:?regular rate Rhythm:?regular rhythm Integumentary There is a diffuse, raised, scaly, erythematous rash on bilateral extremities. No superimposed bacterial infection. No discharge. Neuro General:?patient alert, patient awake and patient oriented x3 Initial Vital Signs Initial Vital Signs: Vital Signs Temperature 98.3 F 01/16/25 15:32 Pulse Rate 86 01/16/25 15:32 Respiratory Rate 18 01/16/25 15:32 Blood Pressure 128/77 01/16/25 15:32 Pulse Oximetry 96 01/16/25 15:32 Oxygen Delivery Method Room Air 01/16/25 15:32 Course Vital Signs Vital signs: Vital Signs - 8 hr 01/16/25 15:32 01/16/25 16:30 Temperature 98.3 F 97.8 F Pulse Rate 86 76 Respiratory Rate 18 18 Blood Pressure 128/77 120/68 Pulse Oximetry 96 99 Oxygen Delivery Method Room Air Room Air MDM - Skin/Abscess/Foreign Bdy MDM Narrative Medical decision making narrative: 59-year-old male with past medical history asthma presents to the ED with rashes on bilateral lower and upper extremities. Physical exam is consistent with an atopic rash. Prescribed steroid ointment for a few more days. Recommend that patient see a deputy county counsel if symptoms do not resolve completely. ED return precautions discussed with patient. Patient verbalized understanding. Medical records reviewed: Yes Discharge Plan Departure Patient Disposition: Home Clinical Impression: Eczema Qualifiers: Eczema type: flexural Qualified Code(s): L20.82 - Flexural eczema Instructions: DI for Atopic Dermatitis-Adult Activity Restrictions/Additional Instructions: You were evaluated in the emergency department today for a rash. You are being prescribed a steroid ointment to apply for the next 2 weeks to calm down the rash. It is also important that you see a deputy county counsel or skin Dr. for further evaluation and treatment. Return to the ED if you have worsening symptoms. Prescriptions: New triamcinolone acetonide 0.05 % ointment 1 applic topical BID 14 Days Qty: 430 0RF No Action prednisone 20 mg tablet 20 mg PO DAILY Qty: 5 0RF Rx Instructions: administer with food or milk albuterol sulfate 90 mcg/actuation aerosol powdr breath activated 2 puff INHALATION Q4H PRN (Reason: shortness of breath or wheezing) Qty: 1 0RF Rx Instructions: administer with spacer ketorolac 10 mg tablet 10 mg PO Q6H PRN (Reason: pain) Qty: 14 0RF amoxicillin-pot clavulanate 875-125 mg tablet 1 tab PO Q12H Qty: 20 0RF albuterol sulfate 90 mcg/actuation HFA aerosol inhaler 2 puff inhalation Q6H PRN (Reason: shortness of breath or wheezing) Qty: 8.5 1RF fluticasone propionate 110 mcg/actuation HFA aerosol inhaler 2 puff inhalation BID Qty: 12 0RF prednisone 50 mg tablet 50 mg PO DAILY Qty: 5 0RF triamcinolone acetonide 0.1 % cream 1 applic topical BID 14 Days Qty: 80 0RF Stand Alone Forms: Patient Portal/API
== END 2025-01-16 16:31 | disposition home or self-care (01) ==
PROVIDERS: Emergency Provider Student in an Organized Health Care Education/Training Program
DX: L20.82 Flexural eczema (principal)
CPT/HCPCS: 99281